=== PATIENT | male | born 1995 | race Caucasian/White ===

== ENCOUNTER 2023-06-27 19:12 | Emergency (ER) | payer OTHER, SELFPAY ==
--- NOTE | ~2023-06-27 | CT_ITS ---
EXAMINATION: CT soft tissue neck w con DATE: 06/27/2023 20:46 INDICATION: Sore throat. TECHNIQUE: Computed tomography (CT) of the neck was performed with 75 mL Omnipaque-350 intravenous co ntrast. Automated exposure control and iterative reconstruction technique were employed. The dose-armaan gth product was 601.12 mGy-cm. COMPARISON: None FINDINGS: The palatine tonsils are enlarged. There is low attenuation in right palatine tonsil measur ing 17 x 14 mm. There is mild high right internal jugular chain lymphadenopathy, likely reactive. The internal jugular veins are patent. The mastoid air cells are normal. There is kyphosis of cervical s pine. IMPRESSION: 1. Enlarged palatine tonsils with early 17 x 14 mm peritonsillar abscess on the right. 2. Mild right high internal jugular chain lymphadenopathy, likely reactive. Reviewed, dictated and finalized at location E. REMOVER
[2023-06-27 19:15] VITALS: BP 145/79; PULSE 91; RESP 20; TEMP 36.2; O2SAT 100
--- NOTE | 2023-06-27 19:37 | ED.DENTAL ---
HPI - Dental/Oral General Chief complaint: Skin/Abscess/Foreign Body Stated complaint: TONSIL ABCESS Time Seen by Provider: 06/27/23 19:35 Source: patient Mode of arrival: ambulatory Limitations: no limitations History of Present Illness HPI Narrative: 28 yo male presents from urgent care with concern for R peritonsillar abscess. Diagnosed with Strep 06/09/23 and has finished 10day course of amoxicillin. He was feeling bettter but then He noticed that he continued to have swelling at the back of his throat on the right. No pain but it is causing difficulty opening his mouth. He also feels fatigued. No pain with swallowing, no difficulty managing secretions. No fevers. He believes it has started draining as he tasted something. Related Data Allergies Allergy/AdvReac Type Severity Reaction Status Date / Time No Known Allergies Allergy Verified 06/27/23 19:57 Exam Narrative: GENERAL: Well-appearing, well-nourished, and in no acute distress. HEAD: Normocephalic, atraumatic. EYES: Non injected, non icteric ENT: Nares clear, no rhinorrhea or epistaxis. Right peritonsillar abscess. No involvement of floor of mouth or tongue. Uvula midline. NECK: Supple. No cervical or mandibular or occipital lymphadenopathy. Normal range of motion. CHEST: Speaking in complete sentences. No respiratory distress. HEART: Regular rate and rhythm. . ABDOMEN: Soft, nondistended. EXTREMITIES: Normal range of motion. No edema. SKIN: Warm, dry, no rash. NEURO: No focal deficits. Alert and oriented. PSYCH: Normal mood and affect. Course Vital Signs Vital signs: Vital Signs Temperature 97.1 F L 06/27/23 19:15 Pulse Rate 91 06/27/23 19:15 Respiratory Rate 20 06/27/23 19:15 Blood Pressure 145/79 H 06/27/23 19:15 Pulse Oximetry 100 06/27/23 19:15 Oxygen Delivery Room Air 06/27/23 19:15 Temperature 98.8 F 06/27/23 23:36 Pulse Rate 86 06/27/23 23:36 Respiratory Rate 16 06/27/23 23:36 Blood Pressure 142/80 H 06/27/23 23:36 Pulse Oximetry 99 06/27/23 23:36 Oxygen Delivery Room Air 06/27/23 19:15 Procedures Abscess I/D PERITONSILLAR ABSCESS, Right: Side (if applicable): right Sedation/analgesia: none Local Anesthetic: lidocaine 1% Amount of anesthesia used (mL): 2 Technique: needle aspiration Amount of fluid expressed (mL): 1 Irrigation: No Packing used?: none I&D Results: Blood (scant) Abcess I&D Additional Comments: Anastehtic spray applied to overlying mucosa ( hurrican spray ). RN held suction. Patient held 3 MAC laryngoscope blade as tongue depressor and light source. 2mL lidocaine injected into mucosa of anterior tonsillar pillar using 25 ga needle after first aspirating. 18gauge needle injected first superior pole then middle pole then inferior poles. Scant bleeding, suction applied. No purulent discharge. Patient tolerated well. MDM - Dental/Oral MDM Narrative Medical decision making narrative: 28 yo male presents with concern for peritonsillar abscess. Mild dysphagia and dysphonia but no fevers, odynophagia, difficulty managing secretions, or uvula deflection. Patient notes difficulty openeing mouth but no signfiicant trismus on exam. He is afebrile with vital signs notable for hypertension. Will obtain CT imaging to confirm no deeper space infection. Plan to attempt drainage in ED. Bedside STYLIST APPRENTICE needle aspiration attempted at bedside as above. Patient has scant bleeding but no purulent discharge. No complications, using suction intermittently for blood but airway patent, not in distress, resting comfortably. 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 Recommends Augmentin, Medrol dose pack and follow up in clinic. Patient informed, verifies understanding, amenable with plan. Discharged in stable condition. Lab Data Attestation: I r
[2023-06-27 20:03] LABS: Basophils Percent Auto 0.4 % (0.2-1.2); Eosinophils Absolute Auto 0.1 K/mm3 (0-0.3); Eosinophils Percent Auto 0.8 % (0-4.4); Hematocrit 42.9 % (42.0-52.0); Hemoglobin 14.3 g/dL (14.0-18.0); Immature Granulocyte Absolute 0.03 K/mm3 (0.00-0.031); Immature Granulocyte Percent A 0.4 % (0-0.5); Lymphocytes Absolute Auto 1.32 K/mm3 (0.9-3.2); Lymphocytes Percent Auto 18.4 % (18.3-44.2); Mean Corpuscular HGB Conc 33.3 g/dl (32-36); Mean Corpuscular Hemoglobin 30.2 pg (26-34); Mean Corpuscular Volume 90.7 fl (80-100); Mean Platelet Volume 10.9 fl (7.4-10.4); Monocytes Absolute Auto 0.6 K/mm3 (0.1-0.6); Monocytes Percent Auto 8.9 % (2.6-8.5); Neutrophils Absolute Auto 5.1 K/mm3 (1.3-6.7); Neutrophils Percent Auto 71.1 % (45.5-73.1); Platelet Count Result 237 k/mm3 (150-375); Red Blood Count 4.73 M/mm3 (4.6-6.20); Red Cell Distribution Width 12.1 % (11.5-14.5); White Blood Count 7.2 K/mm3 (4.5-10.0)
[2023-06-27 20:13] LABS: Alanine Aminotransferase 43 U/L (6-50); Albumin Level 4.4 g/dL (3.5-5.1); Alkaline Phosphatase 86 U/L (38-126); Anion Gap 10 mmol/L (8-16); Aspartate Amino Transferase 35 U/L (17-59); Bilirubin,Total 0.8 mg/dL (0.2-1.3); Blood Urea Nitrogen 17 mg/dL (9-20); Calcium 9.5 mg/dL (8.4-10.2); Carbon Dioxide 25 mmol/L (22-30); Chloride 105 mmol/L (98-107); Estimated CRCL calculation 118 ml/min; Estimated Glomerular Filt Rate > 60; Glucose 101 mg/dL (65-110); Sodium 140 mmol/L (137-145)
[2023-06-27] MEDS: dexAMETHasone SOD PHOS INJ 10 MG/ML 1 ML VIAL IV PUSH (21:55)
[2023-06-27] MEDS: CLINDAMYCIN 600 MG/D5W 50 ML 600 MG/50 ML PIGGYBACK 100 MG IVPB (21:55)
[2023-06-27] MEDS: cefTRIAXone 2 GM/NS 100 ML 2 GM/100 ML BAG IVPB (21:55)
[2023-06-27] MEDS: BENZOCAINE (*SP) 60 ML SPRAY CAN (HURRICAINE) 1 SPRAY MUCOUS MEM (21:56)
[2023-06-27] MEDS: DEXTROSE 5%/0.45% SOD CHL 1,000 ML 100 ML IV CONT (22:43)
[2023-06-27 23:36] VITALS: BP 142/80; PULSE 86; RESP 16; TEMP 37.1; O2SAT 99
== END 2023-06-27 23:38 | disposition home or self-care (01) ==
PROVIDERS: Emergency Provider Student in an Organized Health Care Education/Training Program
DX: J36 Peritonsillar abscess (principal)
CPT/HCPCS: 36415; 70491; 80053; 85025; 96361; 96365; 96367; 96375; 99284; A9270; J0696; J1100; Q9967